=== PATIENT | female | born 1975 | race African-American/Black ===

== ENCOUNTER 2016-05-07 04:21 | Emergency (ER) | payer BC ==
--- NOTE | ~2016-05-07 | EKG ---
PATIENT: MISHA DAHL UNIT #: [id number] Ventricular Rate: 90 BPM Atrial Rate: 90 BPM P-R Interval: 142 ms QRS Duration: 80 ms Q-T Interval: 394 ms QTC Calculation(Bezet): 481 ms P [place]: 66 degrees Calculated R [place]: 32 degrees Calculated T [place]: 24 degrees Diagnosis Line: Normal sinus rhythm Diagnosis Line: Nonspecific T wave abnormality Diagnosis Line: Prolonged QT Diagnosis Line: Abnormal ECG Diagnosis Line: No previous ECGs available Diagnosis Line: Confirmed by TRANG HOPKINS MD ([id number]) on 05/10/2016 Diagnosis Line: 10:42:50 PM INTERPRETING MD: SANDEEP ROLAND
--- NOTE | ~2016-05-07 | CT71 ---
[facility] A Service of [facility] RADIOLOGY TEXT RESULTS PATIENT: MISHA DAHL LOCATION: [facility] : 71 UNIT #: [id number] AGE: [address]: Anay Rodas APRN SEX: F ORDER DR: [id number] [facility] [address] [place], [place] [address] [id number] E MR#: [id number] Acc #: [id number] NAME: MISHA DAHL. : 1975 SEX: F STUDY DATE/TIME: 05/07/2016 5:06 UNIT: [facility] ROOM: STUDY DESCRIPTION: CT Head Wo Contrast Attending Physician: Anay Rodas A.P.R.N. Ordering Physician: Anay Rodas A.P.R.N. Primary Care Physician: Chelly Rincon M.D. MEDICAL IMAGING REPORT This report is preliminary unless electronic signature is present EXAM CT head, noncontrast, 05/07/2016 HISTORY 41-year-old female in the ED complaining of 2-day history of severe headaches. TECHNIQUE CT examination of the head was performed without IV contrast. This CT exam was performed with one or more of the following radiation dose reduction techniques: automatic exposure control, adjustment of mA and/or kV according to patient size, and iterative reconstruction. FINDINGS No acute intracranial abnormality is identified. No evidence of intracranial hemorrhage, mass, mass effect, cerebral edema or hydrocephalus. IMPRESSION No acute intracranial abnormality. Dictated by... Reggie Meng M.D. THIS IS AN ELECTRONICALLY VERIFIED REPORT Reggie Meng M.D. at 05/11/2016 5:01 PM MARICEL/marybel TD: 05/07/2016 08:47 JOB #: [id number] MEDICAL IMAGING REPORT [facility] A Service of [facility] RADIOLOGY TEXT RESULTS PATIENT: MISHA DAHL LOCATION: [facility] : 71 UNIT #: [id number] AGE: [address]: Anay Rodas APRN SEX: F ORDER DR: Page 1 of 1 COPY
--- NOTE | ~2016-05-07 | CR72 ---
[facility] A Service of [facility] RADIOLOGY TEXT RESULTS PATIENT: MISHA DAHL LOCATION: [facility] : 71 UNIT #: [id number] AGE: [address]: Anay Rodas APRN SEX: F ORDER DR: [id number] [facility] [address] [place], [place] [address] [id number] E MR#: [id number] Acc #: [id number] NAME: MISHA DAHL. : 1975 SEX: F STUDY DATE/TIME: 05/07/2016 4:36 UNIT: [facility] ROOM: STUDY DESCRIPTION: CR Chest Single View Portable Attending Physician: Anay Rodas A.P.R.N. Ordering Physician: Anay Rodas A.P.R.N. Primary Care Physician: Chelly Rincon M.D. MEDICAL IMAGING REPORT This report is preliminary unless electronic signature is present EXAM Chest x-ray 05/07/2016. HISTORY 41-year-old female in the ED complaining of headache and left arm discomfort beginning earlier tonight. TECHNIQUE AP portable chest x-ray. FINDINGS The examination is negative. Heart size and pulmonary vascularity are normal. The lungs are clear. No visible pulmonary infiltrate or pleural effusion. IMPRESSION Negative chest. Dictated by... Reggie Meng M.D. THIS IS AN ELECTRONICALLY VERIFIED REPORT Reggie Meng M.D. at 05/11/2016 5:01 PM MARICEL/shon TD: 05/07/2016 08:39 JOB #: [id number] MEDICAL IMAGING REPORT Page 1 of 1 COPY
[2016-05-07 04:57] LABS: BASOPHIL% 0.4 % (0-2.5); EOSINOPHIL# 0.4 X10e3 (0-0.7); EOSINOPHIL% 5.1 % (0.0-7.0); HEMATOCRIT 35.7 % (35.0-45.0); HEMOGLOBIN 11.5 gm/dL (12.0-16.0); LYMPHOCYTE% 28.7 % (17.0-45.0); MEAN CELL VOLUME 83.2 FL (83-96); MEAN CORPUSCULAR HEMOGLOBIN 26.8 PG (28-34); MEAN CORPUSCULAR HGB CONC 32.3 g/dL (30-36); MEAN PLATELET VOLUME 9.3 FL (6.5-11.5); MONOCYTE# 0.6 X10e3 (0-1.0); MONOCYTE% 8.8 % (3.0-12.0); NEUTROPHIL# 3.9 X10e3 (1.5-7.1); PLATELET COUNT 210 X10e3 (140-420); RED BLOOD COUNT 4.29 X10e (3.90-5.30); RED CELL DISTRIBUTION WIDTH 15.3 % (11.0-15.5); WHITE BLOOD COUNT 6.9 X10e3 (4.0-10.5)
[2016-05-07 05:08] LABS: POC - CKMB <1.0 ng/mL (0.0-7.9); POC - TROPONIN <0.05 ng/mL (<=0.05)
[2016-05-07 05:11] LABS: DIFF IND NO
[2016-05-07 05:23] LABS: ALBUMIN SERUM 3.8 g/dL (3.5-5.0); BILIRUBIN, DIRECT 0.1 mg/dL (0.0-0.2); BILIRUBIN,INDIRECT 0.5 mg/dL (0.0-0.9); BILIRUBIN,TOTAL 0.6 mg/dL (0.2-2.0); BUN/CREATININE RATIO 23.75; CALCIUM SERUM 8.8 mg/dL (8.4-10.2); CREATININE SERUM 0.8 mg/dL (0.6-1.4); GLOM FILT RATE Estimated 104.7 mL/min (>60); POTASSIUM 3.8 mmol/L (3.5-5.1); PROTEIN TOTAL SERUM 6.9 g/dL (6.0-8.3)
[2016-05-07 06:00] LABS: URINE SOURCE CLEAN CATCH
[2016-05-07 06:26] LABS: AMPHETAMINE NEG (NEG); BARBITURATES NEG (NEG); BENZODIAZEPINES NEG (NEG); COCAINE NEG (NEG); MARIJUANA NEG (NEG); OPIATES NEG (NEG); TRICYCLIC ANTIDEPRESSANTS NEG (NEG); U METHADONE NEG (NEG)
[2016-05-07 06:28] LABS: URINE APPEARANCE SL CLOUDY; URINE COLOR YELLOW; URINE GLUCOSE NEG (NEG); URINE KETONE NEG (NEG); URINE LEUKOCYTE ESTERASE NEG (NEG); URINE NITRATE NEG (NEG); URINE PROTEIN NEG (NEG); URINE SPECIFIC GRAVITY 1.022 (1.003-1.035)
[2016-05-07 06:29] LABS: CULTURE INDICATED? NO; URINE BILIRUBIN NEG (NEG); URINE BLOOD NEG (NEG); URINE UROBILINOGEN 0.2 MG/DL (NEG)
== END 2016-05-07 07:15 | disposition home or self-care (01) ==
LOC: CED 04:21
PROVIDERS: Nurse Practitioner
DX: R20.2 Paresthesia of skin (principal); I10 Essential (primary) hypertension
CPT/HCPCS: 36415; 70450; 71010; 80048; 80076; 80307; 81003; 82553; 84484; 84703; 85025; 85610; 85730; 93005; 99284